=== PATIENT | female | born 1950 | race Caucasian/White ===

== ENCOUNTER 2016-03-30 11:16 | Emergency (ER) | payer MEDICARE ==
[2016-03-30 12:05] LABS: ABSOLUTE BASOPHILS # (AUTO) 0.1 10^3/uL (0.0-0.2); ABSOLUTE EOSINOPHILS # (AUTO) 0.3 10^3/uL (0.0-0.6); ABSOLUTE LYMPHOCYTES (AUTO) 2.8 10^3/uL (0.5-4.7); ABSOLUTE NEUT (AUTO) 5.6 10^3/uL (1.7-8.2); BASOPHILS % (AUTO) 0.6 % (0-2); EOSINOPHILS % (AUTO) 2.9 % (0-6); HEMATOCRIT 35.5 % (36.0-47.0); HEMOGLOBIN 12.1 g/dL (12.0-15.5); HGB HCT DIFFERENCE 0.8; LYMPHOCYTES % (AUTO) 28.6 % (13-45); MEAN CORPUSCULAR HEMOGLOBIN 30.3 pg (27.0-33.4); MEAN CORPUSCULAR HGB CONC 34.2 g/dL (32.0-36.0); MEAN CORPUSCULAR VOLUME 89 fl (80-97); MONOCYTES % (AUTO) 9.8 % (3-13); RED BLOOD COUNT 4.01 10^6/uL (3.72-5.28); RED CELL DISTRIBUTION WIDTH 13.9 % (11.5-14.0); SEGMENTED NEUTROPHILS % (AUTO) 58.1 % (42-78); WHITE BLOOD COUNT 9.7 10^3/uL (4.0-10.5)
[2016-03-30] MEDS ORDERED: NORMAL SALINE 1000 ML 1,000 ML IV ONE (12:06)
[2016-03-30] MEDS ORDERED: ONDANSETRON HCL INJ/PF 4 MG/2 ML SDV IV ONE (12:06)
[2016-03-30 12:10] LABS: APPEARANCE,URINE CLOUDY; BILIRUBIN,URINE NEGATIVE (NEGATIVE); GLUCOSE, URINE NEGATIVE (NEGATIVE); KETONES,URINE NEGATIVE (NEGATIVE); LEUKOCYTE ESTERASE,URINE NEGATIVE (NEGATIVE); NITRITE,URINE NEGATIVE (NEGATIVE); PROTEIN,URINE 30 mg/dL (NEGATIVE); URINE SPECIFIC GRAVITY 1.021; UROBILINOGEN,URINE NEGATIVE mg/dL (<2.0)
--- NOTE | 2016-03-30 12:13 | ER Document Report ---
ED General - General Chief Complaint: Nausea Stated Complaint: SYNCOPE/NAUSEA Notes: This is a 65-year-old female with a history of hypertension diabetes mellitus type II hyperlipidemia that presents today with sudden onset syncope. She states that this morning she woke up slightly nauseous, however continue with her daily routine. She ate half an apple and went to scientologist. While seated she had increased nausea, as well as diaphoresis, and dizziness. She stated that she felt like the room was spinning. She then asked her to follow her outside to get some air. As she was walking to the door she blacked out however her caught her. This occurred at approximately 1000 this morning. Loss of consciousness was approximately 20 seconds. According to at bedside she was pale and clammy. EMS brought her to the emergency department. Denies history of myocardial infarction or stroke. She states that she had a similar episode 4 years ago due to low blood pressure at home. TRAVEL OUTSIDE OF THE [place] IN LAST 30 DAYS: No Past Medical History - General Information source: Patient Last Menstrual Period: N/A - Social History Smoking Status: Never Smoker Chew tobacco use (# tins/day): No Frequency of alcohol use: None Drug Abuse: None Family History: Reviewed & Not Pertinent Patient has suicidal ideation: No Patient has homicidal ideation: No - Past Medical History Cardiac Medical History: Reports: Hx Hypercholesterolemia, Hx Hypertension Endocrine Medical History: Reports: Hx Diabetes Mellitus Type 2 Past Surgical History: Reports: Hx Orthopedic Surgery - herniated disk repair - Immunizations Hx Diphtheria, Pertussis, Tetanus Vaccination: Yes Review of Systems - Review of Systems Constitutional: denies: Chills, Fever EENT: Blurred vision - she states that she had blurred vision with the onset of symptoms Cardiovascular: denies: Chest pain Respiratory: denies: Short of breath Gastrointestinal: denies: Abdominal pain Genitourinary: Dysuria Musculoskeletal: denies: Back pain Neurological/Psychological: Lost consciousness Physical Exam - Vital signs Vitals: Temp Pulse Resp BP Pulse Ox 97.3 F 64 16 145/58 H 100 03/30/16 11:17 03/30/16 11:17 03/30/16 11:17 03/30/16 11:17 03/30/16 11:17 - General General appearance: Appears well - HEENT Head: Normocephalic - Respiratory Respiratory status: No respiratory distress Breath sounds: Normal. No: Rales, Rhonchi, Stridor, Wheezing - Cardiovascular Rhythm: Regular Heart sounds: Normal auscultation, S1 appreciated, S2 appreciated - Abdominal Inspection: Normal Distension: No: No distension Bowel sounds: Normal Tenderness: Nontender - Neurological Cognition: Normal Orientation: AAOx4 Motor strength normal: LUE - Normal muscle strength upper and lower extremity bilaterally. Normal range of motion., RUE, LLE, RLE Additional motor exam normals: Equal registered dietitian Course - Re-evaluation Re-evalutation: 03/30/16 14:15 Patient states that she's been having burning urination for the past 4 days. On physical exam there was no CVA tenderness. She complained of no pain. EKG shows sinus rhythm with a rate of 60 normal axis first degree AV block no signs of ischemia. Imaging results were shared with the patient and was given multiple opportunities to ask questions. - Vital Signs Vital signs: Temp Pulse Resp BP Pulse Ox 98.1 F 64 15 145/52 H 100 03/30/16 14:15 03/30/16 11:17 03/30/16 14:01 03/30/16 14:01 03/30/16 14:01 - Laboratory Result Diagrams: 03/30/16 11:35 03/30/16 11:35 Laboratory results interpreted by me: 03/30/16 03/30/16 03/30/16 11:35 11:35 11:35 Hct 35.5 L Glucose 156 H AST 41 H ALT 62 H Urine Protein 30 H Urine Blood SMALL H Discharge - Discharge Clinical Impression: Syncope and collapse UTI (urinary tract infection) Qualifiers: Urinary tract infection type: site unspecified Hematuria presence: without hematuria Qualified Code(s): N39.0 - Urinary tract infection, site not specified Condition: Stable Disposition: HOME, SELF-CARE Additional Instructions: Return to the emergency department if symptoms worsen. Follow-up with primary care physician. Prescriptions: Ciprofloxacin HCl [Cipro 500 mg Tablet] 500 mg PO BID #14 tablet Referrals: LIBAN BROWN MD [Primary Care Provider] - Follow up as needed
[2016-03-30 12:25] LABS: ALANINE AMINOTRANSFERASE 62 U/L (9-52); ALBUMIN 4.4 g/dL (3.5-5.0); ALKALINE PHOSPHATASE 101 U/L (38-126); ANION GAP 14 (5-19); ASPARTATE AMINO TRANSFERASE 41 U/L (14-36); BILIRUBIN,TOTAL 0.4 mg/dL (0.2-1.3); BLOOD UREA NITROGEN 17 mg/dL (7-20); CALCIUM 9.9 mg/dL (8.4-10.2); CARBON DIOXIDE 25 mmol/L (22-30); CHLORIDE 104 mmol/L (98-107); CREATINE KINASE 61 U/L (30-135); CREATININE RESULT 0.75 mg/dL (0.52-1.25); GLUCOSE 156 mg/dL (75-110); POTASSIUM 4.9 mmol/L (3.6-5.0); SODIUM 143.2 mmol/L (137-145); TOTAL PROTEIN 7.3 g/dL (6.3-8.2)
[2016-03-30 12:39] LABS: TROPONIN I < 0.012 ng/mL
[2016-03-30 14:42] VITALS: BP 145/52
--- NOTE | 2016-03-30 15:06 | EKG REPORT ---
SEVERITY:- ABNORMAL ECG - SINUS RHYTHM FIRST DEGREE AV BLOCK : Confirmed by: Keegan Guillen MD 30-Mar-2016 15:06:05
== END 2016-03-30 14:15 | disposition home or self-care (01) ==
LOC: EDBD → ER 11:16
DX: R55 Syncope and collapse (principal); N39.0 Urinary tract infection, site not specified; R11.0 Nausea; R61 Generalized hyperhidrosis; R30.0 Dysuria; I44.0 Atrioventricular block, first degree; I10 Essential (primary) hypertension; E11.9 Type 2 diabetes mellitus without complications
CPT/HCPCS: 93005; 99284; 96361; 96374; 36415; 82553; 82550; 85025; 80053; 81001; 84484; 70450; 93010; J2405; J7030